=== PATIENT | male | born 1940 | race Two or more races ===

== ENCOUNTER 2022-12-10 11:08 | Inpatient (IN) | payer OTHER ==
[2022-12-10 12:15] LABS: #Monocytes 0.9 10x3/uL (0.0-1.1); #Neutrophils 17.8 10x3/uL (1.5-8.4); %Basophils 0.1 % (0.0-2.0); %Eosinophils 0.1 % (0.0-6.0); %Lymphocytes 1.7 % (18.0-47.0); %Monocytes 4.8 % (0.0-10.0); %Neutrophils 92.3 % (40.0-75.0); Mean Corpuscular HGB CONC 34.4 g/dL (32.0-36.0); Mean Corpuscular Hemoglobin 28.5 pg (27.0-33.0); Mean Corpuscular Volume 82.9 fl (81.2-95.1); Platelet Count 402 10x3/uL (150-450); RBC Distribution Width 16.6 % (11.5-14.5); Red Blood Cell (RBC) Count 3.51 10x6/uL (4.32-5.72); White Blood Cell (WBC) Count 19.3 10x3/uL (3.5-10.5)
[2022-12-10 12:17] LABS: ALT (SGPT) 44 U/L (8-55); AST (SGOT) 89 U/L (5-34); Albumin 2.6 g/dL (3.4-4.8); Alkaline Phosphatase 336 U/L (40-110); Anion Gap 18 mmol/L (10-20); BUN (Urea Nitrogen) 28 mg/dL (8.4-25.7); Calc. Creatinine Clearance 0 mL/min (70-130); Calcium 7.7 mg/dL (7.8-10.44); Carbon Dioxide 24 mmol/L (23-31); Chloride 86 mmol/L (98-107); Estimated GFR 44; Glucose 88 mg/dL (83-110); Potassium 4.7 mmol/L (3.5-5.1); Protein, Total 5.6 g/dL (5.8-8.1); Sodium 123 mmol/L (136-145)
[2022-12-10] MEDS ORDERED: cefTRIAXone (ROCEPHIN) 1 GM VIAL ONE (13:12)
[2022-12-10 13:18] LABS: Magnesium 1.7 mg/dL (1.6-2.6)
[2022-12-10 14:12] LABS: Bilirubin 1+ (Negative); Blood, Urine 150 (Negative); Glucose, Urine (Dipstick) Normal (Negative); Ketone, Urine Negative (Negative); Leukocyte 25 (Negative); Nitrite Negative (Negative); Protein, Urine (Dipstick) 15 mg/dl (Neg-Trace)
[2022-12-10 14:15] LABS: Clarity Slightly Cloudy (Clear)
[2022-12-10 14:21] LABS: Squamous Epithelial 0-3 HPF (0-3)
[2022-12-10 14:22] LABS: Bacteria/HPF 1+ HPF (None Seen)
[2022-12-10] MEDS ORDERED: VANCOMYCIN 1.75 GM/350 ML BAG 1.75 GM in Premix Bag 1 BAG IVPB SCH (15:30)
[2022-12-10] MEDS ORDERED: Ondansetron PF 4 MG/2 ML Vial IVP PRN (15:50)
[2022-12-10] MEDS ORDERED: Acetaminophen 325 MG TAB PO PRN (15:50)
[2022-12-10 15:56] LABS: Lactic Acid 2.5 mmol/L (0.5-2.2)
[2022-12-10 16:03] LABS: Troponin I 0.018 ng/mL (< 0.028)
[2022-12-10] MEDS: Lactated Ringer's 1,000 ML IV SCH (18:36)
[2022-12-10 19:03] LABS: Troponin I 0.018 ng/mL (< 0.028)
[2022-12-10 20:03] VITALS: BMI 23.6
[2022-12-10] MEDS ORDERED: FLU VACC QS2022-23(65YR UP)/PF 240 MCG/0.7 ML SYRINGE IM ONE (21:15)
[2022-12-11 05:37] LABS: #Eosinphils 0.1 10x3/uL (0.0-0.5); #Monocytes 1.2 10x3/uL (0.0-1.1); #Neutrophils 14.1 10x3/uL (1.5-8.4); %Basophils 0.2 % (0.0-2.0); %Eosinophils 0.4 % (0.0-6.0); %Lymphocytes 2.9 % (18.0-47.0); %Monocytes 7.4 % (0.0-10.0); %Neutrophils 88.3 % (40.0-75.0); Hemoglobin 9.2 g/dL (13.5-17.5); Mean Platelet Volume 9.2 fl (7.4-10.4); Platelet Count 338 10x3/uL (150-450); RBC Distribution Width 16.9 % (11.5-14.5); Red Blood Cell (RBC) Count 3.17 10x6/uL (4.32-5.72)
[2022-12-11 05:52] LABS: ALT (SGPT) 31 U/L (8-55); AST (SGOT) 70 U/L (5-34); Albumin 2.1 g/dL (3.4-4.8); Alkaline Phosphatase 305 U/L (40-110); Anion Gap 18 mmol/L (10-20); BUN (Urea Nitrogen) 28 mg/dL (8.4-25.7); Bilirubin, Total 0.7 mg/dL (0.2-1.2); Calc. Creatinine Clearance 44 mL/min (70-130); Calcium 7.6 mg/dL (7.8-10.44); Carbon Dioxide 23 mmol/L (23-31); Chloride 90 mmol/L (98-107); Estimated GFR 57; Globulin 2.8 g/dL (2.4-3.5); Glucose 68 mg/dL (83-110); Potassium 4.5 mmol/L (3.5-5.1); Protein, Total 4.9 g/dL (5.8-8.1); Sodium 126 mmol/L (136-145)
[2022-12-11] MEDS: Lactated Ringer's 1,000 ML IV SCH ×2 (06:06→10:00)
[2022-12-11] MEDS: Furosemide 20 MG TAB PO SCH (09:08)
[2022-12-11] MEDS: Tamsulosin HCl 0.4 MG CAP PO SCH (09:08)
[2022-12-11] MEDS: Aspirin 81 mg Enteric Coated Tablet PO SCH (09:08)
[2022-12-11] MEDS: Folic Acid 1 MG TAB PO SCH (09:08)
[2022-12-11] MEDS: Potassium Chloride 10 MEQ TAB PO SCH (09:08)
[2022-12-11] MEDS ORDERED: cefTRIAXone\\ROCEPHIN 1 GM in Sodium Chloride 0.9% 100 ML IVPB SCH (13:00)
[2022-12-12 05:27] LABS: #Monocytes 1.1 10x3/uL (0.0-1.1); #Neutrophils 15.9 10x3/uL (1.5-8.4); %Basophils 0.1 % (0.0-2.0); %Eosinophils 0.1 % (0.0-6.0); %Lymphocytes 1.9 % (18.0-47.0); %Monocytes 6.4 % (0.0-10.0); %Neutrophils 90.5 % (40.0-75.0); Hemoglobin 10.3 g/dL (13.5-17.5); Mean Corpuscular HGB CONC 34.4 g/dL (32.0-36.0); Mean Corpuscular Hemoglobin 28.6 pg (27.0-33.0); Mean Corpuscular Volume 83.1 fl (81.2-95.1); Mean Platelet Volume 8.9 fl (7.4-10.4); Platelet Count 382 10x3/uL (150-450); RBC Distribution Width 17.1 % (11.5-14.5); White Blood Cell (WBC) Count 17.6 10x3/uL (3.5-10.5)
[2022-12-12 05:37] LABS: ALT (SGPT) 34 U/L (8-55); AST (SGOT) 68 U/L (5-34); Albumin 2.2 g/dL (3.4-4.8); Alkaline Phosphatase 317 U/L (40-110); Anion Gap 18 mmol/L (10-20); BUN (Urea Nitrogen) 29 mg/dL (8.4-25.7); Bilirubin, Total 0.8 mg/dL (0.2-1.2); Calc. Creatinine Clearance 47 mL/min (70-130); Calcium 7.8 mg/dL (7.8-10.44); Carbon Dioxide 20 mmol/L (23-31); Chloride 93 mmol/L (98-107); Estimated GFR 61; Globulin 2.9 g/dL (2.4-3.5); Glucose 64 mg/dL (83-110); Potassium 4.3 mmol/L (3.5-5.1); Protein, Total 5.1 g/dL (5.8-8.1); Sodium 127 mmol/L (136-145)
[2022-12-12] MEDS: Tamsulosin HCl 0.4 MG CAP PO SCH (09:24)
[2022-12-12] MEDS: Furosemide 20 MG TAB PO SCH (09:24)
[2022-12-12] MEDS: Folic Acid 1 MG TAB PO SCH (09:24)
[2022-12-12] MEDS: Aspirin 81 mg Enteric Coated Tablet PO SCH (09:24)
[2022-12-12] MEDS: Potassium Chloride 10 MEQ TAB PO SCH (09:24)
[2022-12-12] MEDS ORDERED: VANCOMYCIN 1.25 GM/250 ML BAG 1.25 GM in Premix Bag 1 BAG IVPB SCH (12:00)
[2022-12-12 12:22] LABS: Lactic Acid 2.7 mmol/L (0.5-2.2)
[2022-12-12] MEDS: metroNIDAZOLE 500 MG in Premix Bag 1 BAG IVPB SCH ×2 (17:15→23:00)
[2022-12-12] MEDS: Cefepime 1 GM in Sodium Chloride 0.9% 100 ML IVPB SCH (17:15)
[2022-12-12] MEDS: Lactated Ringer's 1,000 ML IV SCH (20:00)
[2022-12-12] MEDS ORDERED: Doxycycline 100 MG in Sodium Chloride 0.9% 100 ML IVPB SCH (21:00)
[2022-12-13] MEDS: Cefepime 1 GM in Sodium Chloride 0.9% 100 ML IVPB SCH ×2 (02:39→13:52)
[2022-12-13 05:02] LABS: #Monocytes 1.2 10x3/uL (0.0-1.1); #Neutrophils 16.3 10x3/uL (1.5-8.4); %Basophils 0.1 % (0.0-2.0); %Lymphocytes 2.2 % (18.0-47.0); %Monocytes 6.4 % (0.0-10.0); %Neutrophils 90.4 % (40.0-75.0); Hemoglobin 10.2 g/dL (13.5-17.5); Mean Corpuscular HGB CONC 34.6 g/dL (32.0-36.0); Mean Corpuscular Volume 83.8 fl (81.2-95.1); Platelet Count 351 10x3/uL (150-450); RBC Distribution Width 17.6 % (11.5-14.5); Red Blood Cell (RBC) Count 3.52 10x6/uL (4.32-5.72)
[2022-12-13 05:11] LABS: Phosphorus 3.8 mg/dL (2.3-4.7)
[2022-12-13 05:14] LABS: ALT (SGPT) 33 U/L (8-55); AST (SGOT) 84 U/L (5-34); Albumin 2.2 g/dL (3.4-4.8); Alkaline Phosphatase 303 U/L (40-110); Anion Gap 16 mmol/L (10-20); BUN (Urea Nitrogen) 32 mg/dL (8.4-25.7); Bilirubin, Total 0.8 mg/dL (0.2-1.2); Calc. Creatinine Clearance 47 mL/min (70-130); Calcium 7.7 mg/dL (7.8-10.44); Carbon Dioxide 23 mmol/L (23-31); Chloride 94 mmol/L (98-107); Estimated GFR 61; Globulin 2.8 g/dL (2.4-3.5); Glucose 67 mg/dL (83-110); Magnesium 1.8 mg/dL (1.6-2.6); Potassium 4.8 mmol/L (3.5-5.1); Sodium 128 mmol/L (136-145)
[2022-12-13] MEDS: metroNIDAZOLE 500 MG in Premix Bag 1 BAG IVPB SCH ×2 (06:22→17:37)
[2022-12-13] MEDS ORDERED: Sodium Chloride 0.9% 1,000 ML IV SCH (08:30)
[2022-12-13] MEDS ORDERED: Doxycycline 100 MG in Sodium Chloride 0.9% 100 ML IVPB SCH (09:00)
[2022-12-13] MEDS: Tamsulosin HCl 0.4 MG CAP PO SCH (10:05)
[2022-12-13] MEDS: Folic Acid 1 MG TAB PO SCH (10:05)
[2022-12-13] MEDS: Aspirin 81 mg Enteric Coated Tablet PO SCH (10:05)
[2022-12-13] MEDS: Potassium Chloride 10 MEQ TAB PO SCH (10:05)
[2022-12-13] MEDS ORDERED: Iopamidol 300 61% 100 ML VIAL FS ONE (12:01)
[2022-12-13] MEDS ORDERED: VANCOMYCIN 1.25 GM/250 ML BAG 1.25 GM in Premix Bag 1 BAG IVPB SCH (14:00)
[2022-12-13] MEDS: Cefdinir 300 MG CAP PO SCH (21:50)
[2022-12-14 05:11] LABS: #Monocytes 1.1 10x3/uL (0.0-1.1); #Neutrophils 14.4 10x3/uL (1.5-8.4); %Basophils 0.1 % (0.0-2.0); %Eosinophils 0.2 % (0.0-6.0); %Lymphocytes 3.3 % (18.0-47.0); %Monocytes 6.5 % (0.0-10.0); %Neutrophils 88.7 % (40.0-75.0); Hemoglobin 10.3 g/dL (13.5-17.5); Mean Corpuscular HGB CONC 34.2 g/dL (32.0-36.0); Mean Corpuscular Hemoglobin 28.4 pg (27.0-33.0); Mean Corpuscular Volume 82.9 fl (81.2-95.1); Platelet Count 363 10x3/uL (150-450); RBC Distribution Width 17.6 % (11.5-14.5); Red Blood Cell (RBC) Count 3.63 10x6/uL (4.32-5.72); White Blood Cell (WBC) Count 16.3 10x3/uL (3.5-10.5)
[2022-12-14 05:13] LABS: ALT (SGPT) 34 U/L (8-55); AST (SGOT) 82 U/L (5-34); Albumin 2.1 g/dL (3.4-4.8); Alkaline Phosphatase 295 U/L (40-110); Anion Gap 15 mmol/L (10-20); BUN (Urea Nitrogen) 32 mg/dL (8.4-25.7); Bilirubin, Total 0.8 mg/dL (0.2-1.2); Calc. Creatinine Clearance 51 mL/min (70-130); Calcium 7.7 mg/dL (7.8-10.44); Carbon Dioxide 20 mmol/L (23-31); Chloride 97 mmol/L (98-107); Estimated GFR 67; Globulin 2.8 g/dL (2.4-3.5); Glucose 61 mg/dL (83-110); Potassium 4.4 mmol/L (3.5-5.1); Protein, Total 4.9 g/dL (5.8-8.1); Sodium 128 mmol/L (136-145)
[2022-12-14] MEDS: Cefdinir 300 MG CAP PO SCH ×2 (10:01→21:09)
[2022-12-14] MEDS: Folic Acid 1 MG TAB PO SCH (10:01)
[2022-12-14] MEDS: Tamsulosin HCl 0.4 MG CAP PO SCH (10:01)
[2022-12-14] MEDS: Aspirin 81 mg Enteric Coated Tablet PO SCH (10:02)
[2022-12-14] MEDS: Potassium Chloride 10 MEQ TAB PO SCH (10:11)
[2022-12-15 07:54] VITALS: BP 112/59; TEMP 98.7
[2022-12-15] MEDS: Potassium Chloride 10 MEQ TAB PO SCH (09:32)
[2022-12-15] MEDS: Tamsulosin HCl 0.4 MG CAP PO SCH (09:32)
[2022-12-15] MEDS: Aspirin 81 mg Enteric Coated Tablet PO SCH (09:32)
[2022-12-15] MEDS: Folic Acid 1 MG TAB PO SCH (09:32)
[2022-12-15] MEDS: Cefdinir 300 MG CAP PO SCH (09:35)
[2022-12-17 11:15] LABS: Total PSA 0.1 ng/mL (0.0-4.0)
== END 2022-12-15 11:39 | disposition hospice, home (50) | DRG 683 ==
LOC: CSHERS 11:08 → OBSVTOIN 15:24 → INTOOBSV 15:24 → CSHERHOLD 15:24 → CSHTELE 22:48
PROVIDERS: ADMIT Internal Medicine; ATTEND Internal Medicine
DX: N17.9 Acute kidney failure, unspecified (principal); C78.7 Secondary malignant neoplasm of liver and intrahepatic bile duct; E87.1 Hypo-osmolality and hyponatremia; E87.20 Acidosis, unspecified; L03.116 Cellulitis of left lower limb; R64 Cachexia; C79.19 Secondary malignant neoplasm of other urinary organs; E86.0 Dehydration; Z51.5 Encounter for palliative care; Z66 Do not resuscitate; D72.829 Elevated white blood cell count, unspecified; D64.9 Anemia, unspecified; L89.152 Pressure ulcer of sacral region, stage 2; I25.10 Atherosclerotic heart disease of native coronary artery without angina pectoris; C80.1 Malignant (primary) neoplasm, unspecified; N28.84 Pyelitis cystica; K80.20 Calculus of gallbladder without cholecystitis without obstruction; N40.0 Benign prostatic hyperplasia without lower urinary tract symptoms; I11.0 Hypertensive heart disease with heart failure; I50.9 Heart failure, unspecified; R53.81 Other malaise; Z86.73 Personal history of transient ischemic attack (TIA), and cerebral infarction without residual deficits; Z88.0 Allergy status to penicillin; Z88.2 Allergy status to sulfonamides; Z68.23 Body mass index [BMI] 23.0-23.9, adult
CPT/HCPCS: 36415; 70450; 71045; 74177; 76705; 76856; 80053; 81003; 81015; 82977; 83605; 83735; 83880; 84100; 84145; 84153; 84154; 84484; 85025; 87040; 87077; 87086; 93005; 93306; 93970; 93976; 96361; 96365; 96366; 96367; J0692; J0696; J1650; J3370; J3490; J7050; J7120; Q9967